=== PATIENT | male | born 1945 ===

== ENCOUNTER 2017-08-29 20:02 | Inpatient (IN) | payer MEDICARE, OTHER ==
[2017-08-29 22:32] LABS: Hematocrit 43 % (42-52); Hemoglobin 14.3 g/dl (14.0-18.0); Mean Corpuscular HGB Conc 33 g/dl (31-36); Mean Corpuscular Hemoglobin 32 pg (27-31); Mean Corpuscular Volume 95 fL (80-94); Mean Platelet Volume 9 um3 (7.4-10.4); Red Blood Count 4.48 10^6/ul (4.0-5.4); Red Cell Distribution Width 13 % (10.5-15); White Blood Count 11.5 10^3/ul (3.5-10.8)
[2017-08-29] MEDS ORDERED: Pantoprazole IV* 40 MG IV ONE (22:40)
[2017-08-29 22:44] LABS: ALT 18 U/L (7-52); Albumin 3.8 g/dL (3.2-5.2); Alkaline Phosphatase 41 U/L (34-104); BUN/Creatinine Ratio 53.3 (8-20); Blood Urea Nitrogen 49 mg/dL (6-24); Calcium 8.5 mg/dL (8.6-10.3); Chloride 106 mmol/L (101-111); EGFR Non-African American 80.9 (>60); Globulin 3.1 g/dL (2-4); Glucose 154 mg/dL (70-100); Sodium 137 mmol/L (133-145); Total Protein 6.9 g/dL (6.4-8.9)
[2017-08-29 22:46] LABS: Troponin I 0.02 ng/mL (<0.04)
[2017-08-29 23:14] LABS: Anion Gap 10 mmol/L (2-11); CO2 Carbon Dioxide 21 mmol/L (22-32)
[2017-08-29] MEDS: Pantoprazole IV* 80 MG in NS 0.9% 250 ML* 250 ML IVPB SCH (23:15)
[2017-08-29] MEDS ORDERED: NS 0.9% 1000 ML* 1,000 ML IV ONE (23:16)
[2017-08-30] MEDS ORDERED: Ondansetron INJ* 2 MG/ML VIAL IV PRN (01:10)
--- NOTE | 2017-08-30 04:15 | HP ---
HISTORY AND PHYSICAL: DATE OF ADMISSION: 08/30/17 PRIMARY CARE PROVIDER: Dr. Plaza. HEALTHCARE PROXY: His . CODE STATUS: Full. CHIEF COMPLAINT: Dark black stool. HISTORY OF PRESENT ILLNESS: This is a 72-year-old man with past medical history of polycythemia, not polycythemia vera, who has been in his usual state of health, woke up this morning, had a bowel movement that looked dark. Later, his BMs became more watery and dark like "chocolate red." In the past, he has occasionally had dark stools that resolved without intervention. The last event was 6 to 7 weeks prior to presentation where he had a dark stool. At that time, he was visiting his daughter in [place], proceeded to the hospital. He also had had the low-grade fever at that time. They thought that he had potentially had dengue fever after his recent visit to [facility]. He was watched for 3 days and discharged at that point. Since that time, he had been feeling well until approximately 1 month prior where he had "food poisoning" with an episode of 1-day nausea and vomiting. He was well until today until he had the dark stool again that occurred without straining. He has had no abdominal pain, nausea, vomiting except for the nausea and vomiting occurred 1 month prior to presentation. His last colonoscopy was 5 years prior to presentation. He has never had an upper endoscopy. He has had no chest pain, lightheadedness, shortness of breath. No abdominal pain. His last bowel movement was just prior to my presentation to his room, which still remained dark. PAST MEDICAL HISTORY: 1. Polycythemia. 2. Asthma. 3. Diabetes. 4. Percutaneous liver biopsy for an abscess in 1984. 5. Cholecystectomy 1.5 years prior. 6. Psoriasis. 7. History of peptic ulcer "while in my 20s." MEDICATIONS: The patient is unclear. There is medication list which does include: 1. Metformin suspected to be 500 mg twice daily. 2. Montelukast 10 mg daily. 3. Aspirin 81 mg daily. 4. Albuterol as needed. ALLERGIES: No known drug allergies. FAMILY HISTORY: No history of CAD. His daughter has breast cancer. SOCIAL HISTORY: 1. He has [id number] history of smoking, quit in 1980. 2. Alcohol 1 to 2 drinks per day. 3. Retired Des professor in studies. REVIEW OF SYSTEMS: As per HPI, otherwise all other systems negative. PHYSICAL EXAMINATION GENERAL: Lying flat in bed, interactive, pleasant, in no apparent distress. VITAL SIGNS: In the emergency room, 168/96; heart rate 113, 100 when see by this author; respiratory rate is 16; 98% on room air; T-max 97.1. HEENT: Oropharynx is clear. Has moist mucous membranes. No conjunctival pallor. NECK: Non-elevated JVD. No cervical or supraclavicular lymphadenopathy. LUNGS: Clear to auscultation. HEART: He has a tachycardic heart rate with a regular rhythm. ABDOMEN: Soft, nontender, nondistended with positive bowel sounds. No rebound or guarding. EXTREMITIES: Warm and well perfused with less than 2-second cap refill. NEURO: He is alert and oriented x3. His cranial nerves II through XII are intact. DIAGNOSTIC STUDIES/LAB DATA: Labs reviewed. Notable for white blood cell count of 11.5, neutrophils 71%, hemoglobin is 14.3, last known normal 17.7 in the setting of polycythemia. INR is 0.95. BUN is notable for 49 with a creatinine of 0.92. Glucose 154. Data reviewed. EKG, sinus tachycardia, ventricular rate of 110, left axis, normal R-wave progression, no ST or T-wave changes. ASSESSMENT AND PLAN: This is a 72-year-old man with past medical history including intermittent dark black stools over the last weeks and years presenting with recurrent dark stools concerning for GI bleed. 1. Upper GI bleed. Suspected based on heme-positive stools as well as drop in his usual re-elevated hemoglobin to a hemoglobin of 14.3. Check serial H and Hs overnight. Type and cross. Maintain 2 IVs. If hemoglobin continues to trend down, we will consult GI for potential endoscopy in the patient, otherwise may benefit from outpatient GI consultation and endoscopy. 2. Type 2 diabetes. Continue metformin. 3. Asthma. Continue Singulair. 4. DVT prophylaxis. Contraindicated in the setting of active GI bleed. 5. Disposition to [address] [place] [address] with telemetry to monitor heart rate more carefully in the setting of suspected GI bleed. [id number]/[facility] #: [id number] [facility]
[2017-08-30 04:33] LABS: Hematocrit 34 % (42-52); Hemoglobin 11.5 g/dl (14.0-18.0)
--- NOTE | 2017-08-30 08:28 | CONSULT ---
Consult Consult: Reason for Consultation: GI bleeding HPI: 72 year old male with history of Diabetes and previous peptic ulcer disease presents with 1 days of melena and hematochezia. Patient reports that he began yesterday having a total of dark stools and hematochezia. Denies any associated nausea or emesis. Denies any abdominal discomfort. States he had a previous episode approximately 6-7 weeks ago and was taking NSAIDs. States he was diagnosed with PUD in his 20s. Denies any accompanied chest discomfort and dyspnea but admits to feeling lightheaded. Patient admitted to medical floor and GI consulted for evaluation. Reports having a previous colonoscopy with polyps in past but none since. ROS: 10 point review of systems is performed and is negative unless specified in HPI Past Medical History DM Obesity Peptic ulcer Disease Polycythemia Vera Past Surgical History: Cholecystectomy MEDS: Metformin ALL: NKDA Social Hx: Denies tobacco and illicits admits to alcohol use 1-2/week Family history: No family history of colorectal cancer or IBD. VITALS: Initial Vitals Temp Pulse Resp BP Pulse Ox 97.1 F 113 20 116/96 98 08/29/17 20:12 08/29/17 20:12 08/29/17 20:12 08/29/17 20:12 08/29/17 20:12 GEN: Appears acutely ill but no respiratory distress HEENT: Anicteric sclera, oropharnyx clear CHEST: Clear to auscultation bilaterally CV: Regular rate rhythm s1 s2 no rubs or gallops ABD: soft, nontender, normoactive bowel sounds EXT: No lower extremity edema NEURO: Grossly intact SKIN: no jaundice. LABS: Laboratory Last Values WBC 11.5 10^3/ul (3.5-10.8) H 08/29/17 21:45 RBC 4.48 10^6/ul (4.0-5.4) 08/29/17 21:45 Hgb 11.5 g/dl (14.0-18.0) L 08/30/17 04:25 Hct 34 % (42-52) L 08/30/17 04:25 MCV 95 fL (80-94) H 08/29/17 21:45 MCH 32 pg (27-31) H 08/29/17 21:45 MCHC 33 g/dl (31-36) 08/29/17 21:45 RDW 13 % (10.5-15) 08/29/17 21:45 Plt Count 210 10^3/ul (150-450) 08/29/17 21:45 MPV 9 um3 (7.4-10.4) 08/29/17 21:45 Neut % (Auto) 71.1 % (38-83) 08/29/17 21:45 Lymph % (Auto) 19.2 % (25-47) L 08/29/17 21:45 [place] % (Auto) 8.5 % (1-9) 08/29/17 21:45 Eos % (Auto) 0.6 % (0-6) 08/29/17 21:45 Baso % (Auto) 0.6 % (0-2) 08/29/17 21:45 Absolute Neuts (auto) 8.2 10^3/ul (1.5-7.7) H 08/29/17 21:45 Absolute Lymphs (auto) 2.2 10^3/ul (1.0-4.8) 08/29/17 21:45 Absolute Monos (auto) 1.0 10^3/ul (0-0.8) H 08/29/17 21:45 Absolute Eos (auto) 0.1 10^3/ul (0-0.6) 08/29/17 21:45 Absolute Basos (auto) 0.1 10^3/ul (0-0.2) 08/29/17 21:45 Absolute Nucleated RBC 0.01 10^3/ul 08/29/17 21:45 Nucleated RBC % 0.1 08/29/17 21:45 INR (Anticoag Therapy) 0.94 (0.89-1.11) 08/29/17 21:45 APTT 25.5 seconds (26.0-36.3) L 08/29/17 21:45 Sodium 137 mmol/L (133-145) 08/29/17 21:45 Potassium 4.4 mmol/L (3.5-5.0) 08/29/17 23:18 Chloride 106 mmol/L (101-111) 08/29/17 21:45 Carbon Dioxide 21 mmol/L (22-32) L 08/29/17 21:45 Anion Gap 10 mmol/L (2-11) 08/29/17 21:45 BUN 49 mg/dL (6-24) H 08/29/17 21:45 Creatinine 0.92 mg/dL (0.67-1.17) 08/29/17 21:45 Est GFR ( Amer) 104.0 (>60) 08/29/17 21:45 Est GFR (Non-Af Amer) 80.9 (>60) 08/29/17 21:45 BUN/Creatinine Ratio 53.3 (8-20) H 08/29/17 21:45 Glucose 154 mg/dL (70-100) H 08/29/17 21:45 Calcium 8.5 mg/dL (8.6-10.3) L 08/29/17 21:45 Total Bilirubin 0.60 mg/dL (0.2-1.0) 08/29/17 21:45 AST 17 U/L (13-39) 08/29/17 23:18 ALT 18 U/L (7-52) 08/29/17 21:45 Alkaline Phosphatase 41 U/L (34-104) 08/29/17 21:45 Troponin I 0.02 ng/mL (<0.04) 08/29/17 21:45 Total Protein 6.9 g/dL (6.4-8.9) 08/29/17 21:45 Albumin 3.8 g/dL (3.2-5.2) 08/29/17 21:45 Globulin 3.1 g/dL (2-4) 08/29/17 21:45 Albumin/Globulin Ratio 1.2 (1-3) 08/29/17 21:45 Blood Type B Positive 08/29/17 21:45 Antibody Screen Negative 08/29/17 21:45 Crossmatch See Detail 08/29/17 21:45 Impression: 72 year old male with above comorbidities here with GI bleeding. Patient report seeing black stools and labs notable for anemia as well as elevated BUN. 1. GI Bleeding: Patient here with GI bleeding and history of NSAID use. Possible causes include PUD, dieulafoy's lesion, malignancy, diverticular bleeding, AVMs, or atypical causes. Given significant bleeding and elevated BUN , there is a concern for UGI bleeding. Please place 2 large bore IVs, type and screen, and transfuse if Hb <10. I recommend that patient be transferred to ICU given he elderly, presented with tachycardia, and has potential for UGI bleed. Please start pantoprazole infusion as well. Patient should also get IV erythromycin at 3mg/kg x1. Please keep NPO for urgent EGD today. 2. Check H/H q6, CMP daily 3. If EGD is negative, plan for colonoscopy tomorrow. Please follow up recommendation post EGD.
--- NOTE | 2017-08-30 08:52 | PN ---
Subjective Date of Service: 08/30/17 Interval History: Patient seen this morning. No further BMs since ED. Denies pain, SOB. States he had black stools in the setting of Ibuprofen use a few months prior which resolved on its own. No NSAIDs since then. Also states he had "ulcers" when he was younger, never had EGD, does not recall any medications for this. Family History: Unchanged from Admission Social History: Unchanged from Admission Past Medical History: Unchanged from Admission Objective Active Medications: Pantoprazole Sodium 80 mg/ (Sodium Chloride) 250 mls @ 25 mls/hr IVPB Q10H KELLEY Erythromycin Lactobionate 250 (mg/ Sodium Chloride) 100 mls @ 100 mls/hr IVPB ONCE ONE Metformin HCl (Glucophage*) 500 mg PO 0800,1700 KELLEY Montelukast Sodium (Singulair Tab*) 10 mg PO DAILY KELLEY Ondansetron HCl (Zofran Inj*) 4 mg IV Q4H PRN Vital Signs 08/30/17 08/30/17 08/30/17 01:11 02:14 06:40 Temperature 99.1 F 99.1 F 98.4 F Pulse Rate 105 105 86 Respiratory 16 16 20 Rate Blood Pressure 93/72 93/72 105/75 (mmHg) O2 Sat by Pulse 100 100 Oximetry Oxygen Devices in Use Now: None Appearance: Elderly M, laying in bed in NAD Eyes: No Scleral Icterus Ears/Nose/Mouth/Throat: - - Dry MM Neck: NL Appearance and Movements; NL JVP Respiratory: Symmetrical Chest Expansion and Respiratory Effort, Clear to Auscultation Cardiovascular: NL Sounds; No Murmurs; No JVD, RRR Abdominal: NL Sounds; No Tenderness; No Distention Lymphatic: No Cervical Adenopathy Extremities: No Edema Skin: No Rash or Ulcers Neurological: Alert and Oriented x 3 Result Diagrams: 08/30/17 04:25 08/29/17 23:18 Assess/Plan/Problems-Billing Assessment: Acute blood loss anemia 2/2 likely UGIB in a 72 yo M with hx of DM, polycythemia , PUD - Patient Problems (1) Acute blood loss anemia Current Visit: Yes Comment: Likely 2/2 UGIB. Hb dropped this morning, patient ordered 1u PRBC transfusing now. Appreciate GI assistance, plan for EGD today. Continue protonix gtt. Hold ASA. Monitor H/H q6h. Patient on tele, currently HR stable. Dr. Benitez recommended erythromycin x1 and transfer to ICU which we will do and he can be scoped there. (2) Diabetes Current Visit: Yes Comment: Metformin BID once taking PO again (3) DVT prophylaxis Current Visit: Yes Comment: ASHLYN Status and Disposition: OBV for GI bleed
[2017-08-30] MEDS ORDERED: Montelukast Sodium TAB* 5 MG PO SCH (09:00)
[2017-08-30] MEDS: Pantoprazole IV* 80 MG in NS 0.9% 250 ML* 250 ML IVPB SCH (09:42)
[2017-08-30] MEDS: metFORMIN* 500 MG TAB PO SCH ×2 (09:43→17:37)
[2017-08-30] MEDS: Montelukast Sodium TAB* 10 MG PO SCH (09:43)
[2017-08-30 11:42] LABS: Hematocrit 36 % (42-52); Hemoglobin 12.4 g/dl (14.0-18.0)
--- NOTE | 2017-08-30 13:22 | ED ---
Kasey Hernandez Nilda, scribed for Dany Haas MD on 08/29/17 at 2322 . GI/ HPI - HPI Summary HPI Summary: Patient is a 72 y.o. M presenting to [facility] with a chief complaint of bloody stool (maroon) since today. Symptoms aggravated by nothing. Patient denies CP, dyspnea, abd pain, dizziness, lightheadedness. Patient travelled to [facility]. Six weeks ago he was hospitalized for possible dengue fever due to melena ( occurred once). He is currently taking aspirin and metformin. PSHx cholecystectomy and endoscopy (5 years ago). PMHx of Polycythemia Vera. - History of Current Complaint Chief Complaint: EDGeneral Time Seen by Provider: 08/29/17 22:04 Stated Complaint: BLACK STOOL Hx Obtained From: Patient Onset/Duration: Started Hours Ago Timing: Intermittent Current Severity: Mild Pain Intensity: 0 Associated Signs and Symptoms: Positive: Other: - Maroon stool. Patient denies CP, dyspnea, abd pain, dizziness, and lightheadedness. - Allergy/Home Medications Allergies/Adverse Reactions: Allergies Allergy/AdvReac Type Severity Reaction Status Date / Time No Known Allergies Allergy Verified 08/29/17 23:48 PMH/Surg Hx/FS Hx/Imm Hx Endocrine/Hematology History: Reports: Hx Diabetes - TYPE 2, TAKES METFORMIN Denies: Hx Systemic Lupus Erythematosus Cardiovascular History: Denies: Hx Congestive Heart Failure, Hx Hypertension Respiratory History: Reports: Hx Asthma - HX OF GI History: Reports: Hx Ulcer - STOMACH ULCER 40 YRS AGO, OK NOW, Other GI Disorders - GALLSTONES SINCE 09/2014 History: Denies: Hx Renal Disease Musculoskeletal History: Denies: Hx Rheumatoid Arthritis Sensory History: Reports: Hx Contacts or Glasses - GLASSES Denies: Hx Hearing Aid Opthamlomology History: Reports: Hx Contacts or Glasses - GLASSES - Cancer History Hx Chemotherapy: No - Surgical History Surgery Procedure, Year, and Place: 1984 I&D OF LIVER ABSCESS- [facility] Hx Anesthesia Reactions: No Infectious Disease History: No Infectious Disease History: Denies: Traveled Outside the [place] in Last 30 Days - Family History Known Family History: Positive: Diabetes Negative: Hypertension - Social History Alcohol Use: Daily Alcohol Amount: 1-2 liquor drinks per day Substance Use Type: Reports: None Smoking Status (MU): Former Smoker Amount Used/How Often: 1 PPD FOR 15 YRS Length of Time of Smoking/Using Tobacco: 15 YRS Have You Smoked in the Last Year: No Review of Systems Negative: Fever, Chills Negative: Erythema Negative: Sore Throat Negative: Chest Pain Positive: Other - negative dyspnea. Negative: Shortness Of Breath, Cough Positive: Other - bloody stool (maroon). Negative: Abdominal Pain, Vomiting, Nausea Negative: dysuria, hematuria Negative: Myalgia, Edema Negative: Rash Neurological: Other - negative dizziness and lightheadedness All Other Systems Reviewed And Are Negative: Yes Physical Exam - Summary Physical Exam Summary: Constitutional: Well-developed, Well-nourished, Alert. (-) Distressed Skin: Warm, Dry HENT: Normocephalic; Atraumatic Eyes: Conjunctiva normal Neck: Musculoskeletal ROM normal neck. (-) JVD, (-) Stridor, (-) Tracheal deviation Cardio: Rhythm regular, rate normal, Heart sounds normal; Intact distal pulses; The pedal pulses are 2+ and symmetric. Radial pulses are 2+ and symmetric. (-) Murmur Pulmonary/Chest wall: Effort normal. (-) Respiratory distress, (-) Wheezes, (-) Rales Abd: Soft, (-) Tenderness, (-) Distension, (-) Guarding, (-) Rebound Musculoskeletal: (-) Edema Lymph: (-) Cervical adenopathy Neuro: Alert, Oriented x3 Psych: Mood and affect Normal Nayan blood upon rectal exam (maroon colored) Triage Information Reviewed: Yes Vital Signs On Initial Exam: Initial Vitals Temp Pulse Resp BP Pulse Ox 97.1 F 113 20 116/96 98 08/29/17 20:12 08/29/17 20:12 08/29/17 20:12 08/29/17 20:12 08/29/17 20:12 Vital Signs Reviewed: Yes - [place] Coma Scale Coma Scale Total: 15 Diagnostics - Vital Signs Vital Signs Temp Pulse Resp BP Pulse Ox 08/29/17 20:12 97.1 F 113 20 116/96 98 - Laboratory Lab Results: Lab Results 08/29/17 08/29/17 08/29/17 Range/Units 21:45 21:45 21:45 WBC 11.5 H (3.5-10.8) 10^3/ul RBC 4.48 (4.0-5.4) 10^6/ul Hgb 14.3 (14.0-18.0) g/dl Hct 43 (42-52) % MCV 95 H (80-94) fL MCH 32 H (27-31) pg MCHC 33 (31-36) g/dl RDW 13 (10.5-15) % Plt Count 210 (150-450) 10^3/ul MPV 9 (7.4-10.4) um3 Neut % (Auto) 71.1 (38-83) % Lymph % (Auto) 19.2 L (25-47) % [place] % (Auto) 8.5 (1-9) % Eos % (Auto) 0.6 (0-6) % Baso % (Auto) 0.6 (0-2) % Absolute Neuts (auto) 8.2 H (1.5-7.7) 10^3/ul Absolute Lymphs (auto) 2.2 (1.0-4.8) 10^3/ul Absolute Monos (auto) 1.0 H (0-0.8) 10^3/ul Absolute Eos (auto) 0.1 (0-0.6) 10^3/ul Absolute Basos (auto) 0.1 (0-0.2) 10^3/ul Absolute Nucleated RBC 0.01 10^3/ul Nucleated RBC % 0.1 INR (Anticoag Therapy) 0.94 (0.89-1.11) APTT 25.5 L (26.0-36.3) seconds Sodium 137 (133-145) mmol/L Potassium TNP Chloride 106 (101-111) mmol/L Carbon Dioxide 21 L (22-32) mmol/L Anion Gap 10 (2-11) mmol/L BUN 49 H (6-24) mg/dL Creatinine 0.92 (0.67-1.17) mg/dL Est GFR ( Amer) 104.0 (>60) Est GFR (Non-Af Amer) 80.9 (>60) BUN/Creatinine Ratio 53.3 H (8-20) Glucose 154 H (70-100) mg/dL Calcium 8.5 L (8.6-10.3) mg/dL Total Bilirubin 0.60 (0.2-1.0) mg/dL AST TNP ALT 18 (7-52) U/L Alkaline Phosphatase 41 (34-104) U/L Troponin I 0.02 (<0.04) ng/mL Total Protein 6.9 (6.4-8.9) g/dL Albumin 3.8 (3.2-5.2) g/dL Globulin 3.1 (2-4) g/dL Albumin/Globulin Ratio 1.2 (1-3) Blood Type Antibody Screen 08/29/17 Range/Units 21:45 WBC (3.5-10.8) 10^3/ul RBC (4.0-5.4) 10^6/ul Hgb (14.0-18.0) g/dl Hct (42-52) % MCV (80-94) fL MCH (27-31) pg MCHC (31-36) g/dl RDW (10.5-15) % Plt Count (150-450) 10^3/ul MPV (7.4-10.4) um3 Neut % (Auto) (38-83) % Lymph % (Auto) (25-47) % [place] % (Auto) (1-9) % Eos % (Auto) (0-6) % Baso % (Auto) (0-2) % Absolute Neuts (auto) (1.5-7.7) 10^3/ul Absolute Lymphs (auto) (1.0-4.8) 10^3/ul Absolute Monos (auto) (0-0.8) 10^3/ul Absolute Eos (auto) (0-0.6) 10^3/ul Absolute Basos (auto) (0-0.2) 10^3/ul Absolute Nucleated RBC 10^3/ul Nucleated RBC % INR (Anticoag Therapy) (0.89-1.11) APTT (26.0-36.3) seconds Sodium (133-145) mmol/L Potassium Chloride (101-111) mmol/L Carbon Dioxide (22-32) mmol/L Anion Gap (2-11) mmol/L BUN (6-24) mg/dL Creatinine (0.67-1.17) mg/dL Est GFR ( Amer) (>60) Est GFR (Non-Af Amer) (>60) BUN/Creatinine Ratio (8-20) Glucose (70-100) mg/dL Calcium (8.6-10.3) mg/dL Total Bilirubin (0.2-1.0) mg/dL AST ALT (7-52) U/L Alkaline Phosphatase (34-104) U/L Troponin I (<0.04) ng/mL Total Protein (6.4-8.9) g/dL Albumin (3.2-5.2) g/dL Globulin (2-4) g/dL Albumin/Globulin Ratio (1-3) Blood Type B Positive Antibody Screen Negative Result Diagrams: 08/29/17 21:45 08/29/17 23:18 Lab Statement: Any lab studies that have been ordered have been reviewed, and results considered in the medical decision making process. - EKG 2200 Cardiac Rate: Tachycardia - 110 bpm EKG Rhythm: Sinus Tachycardia EKG Interpretation: No STEMI Re-Evaluation - Re-Evaluation First Eval Re-Evaluation Time: 00:08 Comment: Patient is doing well. Dr. Fernandez is at bedside. GIGU Course/Dx - Course Course Of Treatment: Patient is a 72 y.o. M presenting to [facility] with a chief complaint of bloody stool (maroon) since today. Symptoms aggravated by nothing. Patient denies CP, dyspnea, abd pain, dizziness, lightheadedness. Patient travelled to [facility]. Six weeks ago he was hospitalized for possible dengue fever due to melena (occurred once). He is currently taking aspirin and metformin. PSHx cholecystectomy and endoscopy (5 years ago). PMHx of Polycythemia Vera. EKG [2220] reveals sinus tachycardia, 110 bpm, no STEMI. [ 2259] Dr. Gates (GI) who agrees with plan for admit. [0002] Dr. Fernandez ( Hospitalist) will admit patient. Patient has diagnosis of blood loss, rectal bleed, and polycythemia vera. - Diagnoses Provider Diagnoses: Blood loss, Rectal bleed, Polycythemia vera - Physician Notifications Discussed Care Of Patient With: Ramu Gates - GI Time Discussed With Above Provider: 22:59 Instructed by Provider To: Other - Agrees [facility] plan to admit patient. - Critical Care Time Critical Care Time: 30-74 min - 45 mins Discharge - Discharge Plan Condition: Stable Disposition: ADMITTED TO [facility] Referrals: Mal Plaza MD [Primary Care Provider] - The documentation as recorded by the Kasey hand Nilda accurately reflects the service I personally performed and the decisions made by me, Dany Haas MD.
[2017-08-30] MEDS ORDERED: Midazolam* 1 MG/ML 10 ML VIAL (10 MG) ONE (15:08)
[2017-08-30] MEDS ORDERED: fentaNYL* 50 MCG/ML 2 ML VIAL (100 MCG VIAL) ONE (15:08)
[2017-08-30 15:24] LABS: Hematocrit 35 % (42-52)
[2017-08-30] MEDS ORDERED: PEG 3000 GI LAVAGE* 1 GALLON PO ONE (18:00)
[2017-08-30 22:03] LABS: Hematocrit 34 % (42-52); Hemoglobin 11.7 g/dl (14.0-18.0)
--- NOTE | 2017-08-31 02:43 | PRO ---
CC: Abelino Matute MD * DATE OF PROCEDURE: 08/30/17 - ROOM #ICU-09 PROCEDURE PERFORMED: EGD. NARRATIVE: This is a 72-year-old male with past medical history significant for diabetes as well as polycythemia vera, who was admitted with GI bleeding. The patient developed 1 day of bright red blood per rectum as well as melena. He has a recent use of NSAIDs. MEDICATIONS GIVEN: Versed 3 mg, Fentanyl 75 mcg. PROCEDURE IN DETAIL: After the risks and benefits of the procedure were discussed in detail, he verbalized under-standing and agreed to the procedure. Informed consent was obtained. Time-out was then performed. The patient was placed in the left lateral decubitus position and EGD was then performed. Next , I advanced a video adult gastroscope periorally to the second portion of the duodenum. The entire exam in duodenum was completely normal without evidence of bleeding, old blood or erosive disease. In the antrum, there was evidence of gastric erythema as well as congested mucosa without evidence of active bleeding or stigmata of recent bleeding. On retroflexion in the cardia there was evidence of a hiatal hernia, which was small. There was no evidence of active bleeding or old blood. In the distal esophagus, there again was 1 cm hiatal hernia that appeared sliding in nature and improved with respiration. The entire examined esophagus was completely normal without evidence of bleeding or old blood. Oropharynx was clear. The gastroscope was removed from the patient. The patient tolerated the procedure well. There were no immediate complications. The patient will be maintained in the ICU area for recovery. IMPRESSION: 1. Hiatal hernia. 2. Congested gastric mucosa. 3. Otherwise, no active bleeding on upper endoscopy. RECOMMENDATIONS: 1. Stop PPI drip and switch to once daily PPI. 2. Proceed with colonoscopy tomorrow. 3. Check H and H every 8 hours and prep tonight for colonoscopy tomorrow. [id number]/[facility] #: [id number] [facility]
[2017-08-31] MEDS ORDERED: PEG 3000 GI LAVAGE* 1 GALLON PO ONE (06:00)
[2017-08-31 06:04] LABS: Hematocrit 31 % (42-52); Hemoglobin 10.9 g/dl (14.0-18.0); Mean Corpuscular HGB Conc 35 g/dl (31-36); Mean Corpuscular Hemoglobin 33 pg (27-31); Mean Corpuscular Volume 93 fL (80-94); Mean Platelet Volume 9 um3 (7.4-10.4); Red Blood Count 3.33 10^6/ul (4.0-5.4); Red Cell Distribution Width 14 % (10.5-15); White Blood Count 8.9 10^3/ul (3.5-10.8)
[2017-08-31 06:21] LABS: BUN/Creatinine Ratio 34.1 (8-20); Calcium 7.8 mg/dL (8.6-10.3); EGFR African American 118.8 (>60); EGFR Non-African American 92.4 (>60); Potassium 3.5 mmol/L (3.5-5.0)
[2017-08-31] MEDS: Montelukast Sodium TAB* 10 MG PO SCH (08:16)
[2017-08-31] MEDS: metFORMIN* 500 MG TAB PO SCH ×2 (08:16→17:49)
[2017-08-31] MEDS ORDERED: Pantoprazole IV* 40 MG IV SCH (09:00)
--- NOTE | 2017-08-31 09:02 | PN ---
Subjective Date of Service: 08/31/17 Interval History: Patient seen this morning. Started bowel prep, has been having frequent loose dark stools although he states last was starting to clear up. No pain. Reports occasionally light-headedness when sitting up which he attributes to laying down too long. Understand no clear etiology of bleed was found on EGD and plan for c-scope today. Family History: Unchanged from Admission Social History: Unchanged from Admission Past Medical History: Unchanged from Admission Objective Active Medications: Sodium Chloride (Ns 0.9% 1000 Ml*) 1,000 mls @ 100 mls/hr IV PER RATE KELLEY Metformin HCl (Glucophage*) 500 mg PO 0800,1700 KELLEY Montelukast Sodium (Singulair Tab*) 10 mg PO DAILY KELLEY Ondansetron HCl (Zofran Inj*) 4 mg IV Q4H PRN Vital Signs 08/30/17 08/30/17 08/30/17 09:12 12:38 12:43 Temperature 98.7 F 98.6 F Pulse Rate 90 87 114 Respiratory 17 20 25 Rate Blood Pressure 113/75 126/89 126/89 (mmHg) O2 Sat by Pulse 99 98 99 Oximetry 08/30/17 08/30/17 08/30/17 19:45 20:00 20:30 Temperature 98.7 F Pulse Rate 60 87 Respiratory 16 14 26 Rate Blood Pressure 154/89 145/80 (mmHg) O2 Sat by Pulse 100 94 Oximetry 08/31/17 08/31/17 08/31/17 06:06 08:00 08:13 Temperature 99.3 F Pulse Rate 81 Respiratory 22 22 Rate Blood Pressure 128/89 (mmHg) O2 Sat by Pulse 99 Oximetry Oxygen Devices in Use Now: None Appearance: Elderly M, laying in bed in NAD Eyes: No Scleral Icterus Ears/Nose/Mouth/Throat: - - Dry MM Neck: NL Appearance and Movements; NL JVP Respiratory: Symmetrical Chest Expansion and Respiratory Effort, Clear to Auscultation Cardiovascular: NL Sounds; No Murmurs; No JVD, RRR Abdominal: NL Sounds; No Tenderness; No Distention Lymphatic: No Cervical Adenopathy Extremities: No Edema Skin: No Rash or Ulcers Neurological: Alert and Oriented x 3 Result Diagrams: 08/31/17 05:50 08/31/17 05:50 Assess/Plan/Problems-Billing Assessment: Acute blood loss anemia 2/2 GIB in a 72 yo M with hx of DM, polycythemia, PUD - Patient Problems (1) Acute blood loss anemia Current Visit: Yes Comment: 2/2 GIB. Hb continues to drift down. Appreciate GI assistance, EGD on 08/30 with no source of bleed, plan for colonoscopy today. Continue protonix daily. Hold ASA. Monitor H/H q6h. Patient on tele, has been stable, will transfer out of ICU (2) Diabetes Current Visit: Yes Comment: Metformin BID once taking PO again (3) DVT prophylaxis Current Visit: Yes Comment: ASHLYN Status and Disposition: Inpatient for GIB
[2017-08-31] MEDS: NS 0.9% 1000 ML* 1,000 ML IV SCH ×2 (09:52→14:41)
[2017-08-31 12:23] LABS: Magnesium 2.1 mg/dL (1.9-2.7)
[2017-08-31] MEDS ORDERED: Midazolam* 1 MG/ML 10 ML VIAL (10 MG) ONE (15:11)
[2017-08-31] MEDS ORDERED: fentaNYL* 50 MCG/ML 2 ML VIAL (100 MCG VIAL) ONE (15:13)
[2017-08-31] MEDS: Potassium Chloride LIQUID* 20 MEQ PACKET PO SCH ×3 (17:51→18:10)
[2017-08-31 19:46] VITALS: BP 123/70
--- NOTE | 2017-09-01 02:02 | PRO ---
CC: Abelino Matute MD * DATE OF PROCEDURE: 08/31/17 PROCEDURE PERFORMED: Colonoscopy. HISTORY: This is a 72-year-old male who was seen yesterday in consultation for GI bleeding and underwent an EGD that was unremarkable for bleeding. He is here for a colonoscopy for suspected lower GI bleeding. MEDICATIONS GIVEN: Versed 7 mg and fentanyl 50 mcg. PROCEDURE IN DETAIL: After the risks and benefits of the procedure were discussed in detail, he verbalized understanding and agreed to the procedure. Informed consent was obtained. Time-out was then performed. The patient was placed in the left lateral decubitus position and colonoscopy was then performed. Digital rectal examination was remarkable for large internal hemorrhoids that were palpable, non- thrombosed and nonbleeding. There was no evidence of mass on rectal examination. Next, I advanced an adult videocolonoscope to the terminal ileum with ease. The terminal ileum was intubated for approximately 5 cm and was completely normal without evidence of old blood or active bleeding. The cecum, which was identified by the appendiceal orifice and ileocecal valve was completely normal. Overall bowel preparation was good. The entire colon including the ascending colon, transverse colon, and descending colon was completely normal without evidence of polyps or diverticular disease. In the sigmoid colon, there was a small diverticulum noted that was uncomplicated without any evidence of bleeding. In the rectosigmoid colon, it appeared completely normal without evidence of bleeding. Again, in the rectum there was evidence of large internal hemorrhoids with recent stigmata of bleeding and this is likely the source of bleeding. The colonoscope was removed from the patient. The patient tolerated the procedure well. The patient was then transferred back to the medical floor for recovery in stable condition. IMPRESSION: Source of bleeding likely from internal hemorrhoids, which were large and had recent stigmata of bleeding. Otherwise, normal colonoscopy and ileoscopy. RECOMMENDATIONS: Advance diet as tolerated and if H and H is stable today, likely discharge home today or tomorrow. [id number]/[facility] #: [id number] [facility]ess
--- NOTE | 2017-09-01 02:27 | DS ---
DISCHARGE MEDICATION ADDENDUM NOW INCLUDED ON THIS REPORT CC: Dr. Plaza * DISCHARGE SUMMARY: DATE OF ADMISSION: 08/29/17 DATE OF DISCHARGE: 08/31/17 PRIMARY CARE PHYSICIAN: Dr. Plaza. PRINCIPAL DISCHARGE DIAGNOSIS: Acute blood loss anemia due to suspected gastrointestinal bleed. DISCHARGE MEDICATION REGIMEN: 1. Albuterol 2 puffs inhaled every 4 hours as needed for shortness of breath or wheezing. 2. Aspirin 81 mg by mouth daily. 3. Montelukast 10 mg by mouth daily. 4. Metformin 1000 mg by mouth 2 times daily. ADDENDUM: DISCHARGE MEDICATION: 1. Omeprazole 20 mg by mouth daily. CONSULTANTS DURING HOSPITALIZATION: Dr. Benitez, Gastroenterology. HISTORY OF PRESENT ILLNESS AND HOSPITAL SUMMARY: Please see the full history and physical by Dr. Ayan Fernandez for full details. Briefly, Mr. Lozada is a 72-year-old male with past medical history of polycythemia, asthma, diabetes and PUD, who presented to the hospital with dark stools. The patient has been having this intermittently over the past few months and had previously been associated with NSAID use. The patient had an initial hemoglobin drop of 3 points on admission from 14 to 11. He received 1 unit of packed red blood cells. He did have an elevated BUN of 49 on admission. It was felt that this was likely due to an upper GI bleed. GI was consulted and the patient underwent an upper endoscopy on 08/30/17. This showed a hiatal hernia, some congested gastric mucosa but no active bleeding. The patient subsequently underwent a colonoscopy prep and the following day underwent a colonoscopy. The final report is pending at this time; however, I spoke to Dr. Benitez and he stated he did not find any active bleeding on the colonoscopy either. Dr. Benitez felt that the patient was stable for discharge and stable to resume diet. The patient's hemoglobin is 11. I have ordered a repeat CBC for him in about 4 days and he should follow up with his PCP and with GI and may benefit from a capsule endoscopy if his symptoms persist or he becomes more anemic. TIME SPENT: Total time spent on this discharge, 45 minutes. This is a summary of this hospitalization. Please see the full medical record for further details. [id number]/[facility] #: [id number]- [id number]/[facility] #: [id number] RENET[facility]
--- NOTE | 2017-09-01 02:27 | DS ---
DISCHARGE SUMMARY: ADDENDUM: DISCHARGE MEDICATIONS: Omeprazole 20 mg by mouth daily. [id number]/[facility] #: [id number] MTDD
== END 2017-08-31 19:41 | disposition home or self-care (01) | DRG 378 ==
LOC: ED 20:02 → MED 08-30 01:10 → OBSVTOIN 08-30 01:10 → ICU 08-30 08:56 → MEDTELE 08-31 12:43
PROVIDERS: ADMIT Internal Medicine; ATTEND Hospitalist
PROC: 30233N1 Transfusion of Nonautologous Red Blood Cells into Peripheral Vein, Percutaneous Approach (ICD-10-PCS; 2017-08-30)
PROC: 0DJ08ZZ Inspection of Upper Intestinal Tract, Via Natural or Artificial Opening Endoscopic (ICD-10-PCS; 2017-08-30)
PROC: 0DJD8ZZ Inspection of Lower Intestinal Tract, Via Natural or Artificial Opening Endoscopic (ICD-10-PCS; principal; 2017-08-31)
DX: K92.1 Melena (principal); D62 Acute posthemorrhagic anemia; D45 Polycythemia vera; E11.9 Type 2 diabetes mellitus without complications; E66.9 Obesity, unspecified; K64.8 Other hemorrhoids; K44.9 Diaphragmatic hernia without obstruction or gangrene; T39.395A Adverse effect of other nonsteroidal anti-inflammatory drugs [NSAID], initial encounter; J45.909 Unspecified asthma, uncomplicated; Z83.3 Family history of diabetes mellitus; Z72.89 Other problems related to lifestyle; Z87.891 Personal history of nicotine dependence; Z90.49 Acquired absence of other specified parts of digestive tract; Z87.11 Personal history of peptic ulcer disease; Z80.3 Family history of malignant neoplasm of breast; Z68.27 Body mass index [BMI] 27.0-27.9, adult; Z79.84 Long term (current) use of oral hypoglycemic drugs; Z79.82 Long term (current) use of aspirin; Y92.009 Unspecified place in unspecified non-institutional (private) residence as the place of occurrence of the external cause
CPT/HCPCS: 36415; 80048; 80053; 82272; 83735; 84484; 85014; 85018; 85025; 85610; 85730; 86850; 86900; 86901; 86922; 93005; 99156; 99157; A9270-GY; J1364; J2250; J3010; P9040